=== PATIENT | male | born 1960 | race Caucasian/White ===

== ENCOUNTER 2018-04-01 12:42 | Outpatient (CLI) | payer OTHER | END 2018-04-01 12:43 | disposition home or self-care (01) | LOC: DTY/OP 12:42 | PROVIDERS: ATTEND Specialist | DX: Z01.818 Encounter for other preprocedural examination (principal); E66.01 Morbid (severe) obesity due to excess calories | CPT/HCPCS: 97802 ==

== ENCOUNTER 2018-04-24 12:22 | Outpatient (CLI) | payer BC ==
--- NOTE | 2018-04-24 22:18 | EKG ---
Test Reason : Blood Pressure : / mmHG Vent. Rate : 074 BPM Atrial Rate : 074 BPM P-R Int : 160 ms QRS Dur : 098 ms QT Int : 362 ms P-R-T Axes : -02 005 003 degrees QTc Int : 401 ms Normal sinus rhythm Minimal voltage criteria for LVH, may be normal variant Cannot rule out Inferior infarct , age undetermined Borderline ECG No previous ECGs available Confirmed by MICHELLE SEAMAN, DR. Jimenes ([id number]) on 04/24/2018 10:18:27 PM Referred By: MELISSA Confirmed By:DR. Yudy MARTINEZ MD
== END 2018-04-24 12:23 | disposition home or self-care (01) ==
LOC: LABBT 12:22
PROVIDERS: ATTEND Specialist
DX: Z01.818 Encounter for other preprocedural examination (principal); E66.01 Morbid (severe) obesity due to excess calories
CPT/HCPCS: 93005; 93010

== ENCOUNTER 2018-04-24 12:30 | Inpatient (IN) | payer BC ==
[2018-04-30] MEDS ORDERED: Bupivacaine/Epinephrine 0.25% 30 ML VIAL ONE (06:29)
[2018-04-30] MEDS ORDERED: Fentanyl 250 MCG/5 ML VIAL ONE (06:39)
[2018-04-30] MEDS ORDERED: Midazolam HCl 2 mg/2 ml Vial ONE (06:39)
[2018-04-30] MEDS ORDERED: Ketorolac Tromethamine 30 MG/ML VIAL ONE (06:42)
[2018-04-30] MEDS ORDERED: CEFAZOLIN/Water 2 GM/20 ML SYRINGE ONE (06:42)
[2018-04-30] MEDS ORDERED: Ondansetron HCl/PF 4 MG/2 ML Vial IVP PRN ×2 (07:16→10:49)
[2018-04-30] MEDS ORDERED: Promethazine HCl 25 MG/ML VIAL SLOW IVP PRN (07:16)
[2018-04-30] MEDS ORDERED: Promethazine HCl 25 MG/ML VIAL IM PRN ×2 (07:16→10:49)
[2018-04-30] MEDS ORDERED: Scopolamine 1.5 mg/72 hour Patch ONE (08:01)
[2018-04-30] MEDS ORDERED: Fentanyl 100 MCG/2 ML VIAL ONE (09:39)
[2018-04-30 10:18] VITALS: BMI 46.8
[2018-04-30] MEDS ORDERED: Dextrose 50% Abboject 50 ML SYRINGE SLOW IVP PRN (10:49)
[2018-04-30] MEDS ORDERED: Dextrose 5% in Water 1,000 ML IV PRN (10:49)
[2018-04-30] MEDS ORDERED: Hydrocodone-Acetamin 15 ML UDCUP PO PRN (10:49)
[2018-04-30] MEDS ORDERED: diphenhydrAMINE 50 MG/ML VIAL IVP PRN (10:49)
[2018-04-30] MEDS ORDERED: Morphine 4 MG/ML VIAL SLOW IVP PRN ×2 (11:30)
[2018-04-30] MEDS: Ketorolac Tromethamine 30 MG/ML VIAL IVP SCH ×3 (11:37→23:50)
[2018-04-30] MEDS: D5 1/2 NS w/20 mEq KCL 1,000 ML IV SCH ×2 (11:37→18:26)
[2018-04-30] MEDS: hydrALAZINE 20 MG/ML VIAL SLOW IVP PRN ×2 (11:38→15:16)
--- NOTE | 2018-04-30 12:02 | OP ---
DATE OF PROCEDURE: 04/30/2018 PREOPERATIVE DIAGNOSIS: Morbid obesity. POSTOPERATIVE DIAGNOSIS: Morbid obesity. OPERATION PERFORMED: Laparoscopic vertical sleeve gastrectomy using the ViSiGi device. SURGEON: Benjamin Cruz M.D. ANESTHESIA: General endotracheal per Dr. Victor M Huerta. INDICATIONS: The patient is a 57-year-old morbidly obese white male. He has undergone preoperative evaluation and education and presents at this time for laparoscopic sleeve gastrectomy. He has lost 25 pounds in preparation for surgery as per my request. DESCRIPTION OF OPERATIVE: Informed consent was obtained. The patient was taken to the operating ike m where general endotracheal anesthesia obtained with the patient in supine position. Abdomen was pr epped with ChloraPrep and draped in sterile fashion. Local anesthetic was infiltrated and 5 mm supra umbilical incision was created through which Veress needle was passed to the peritoneal cavity and pn eumoperitoneum established using carbon dioxide up to a pressure of 15 mmHg. A 5 mm trocar port was passed through this same incision. Laparoscopic camera was passed through this port. Under direct v ision, 4 additional ports were placed including bilateral 5 mm subcostal ports, a 12 mm right paramed belkis port and a 15 mm left paramedian port. A 5 mm epigastric incision was created through which Nathansen retractor was passed into the abdomina l cavity and used to retract the left lobe of the liver. The patient was placed into reverse [place] position. The ViSiGi device was advanced within the stomach and used to decompress this. The pylorus was ident ified and beginning 4 cm proximal to the pylorus, the omentum and vascular tissue along the greater c urvature was divided using the LigaSure in an ascending fashion up to the angle of His. All posterio r adhesions were mobilized. The short gastric vessels were carefully divided and then hemostasis was maintained using the LigaSure. Once this was completely mobilized, the ViSiGi was carefully positio sue at the level of the pylorus and placed to suction, which was clearly defining the lesser curvatur e of the stomach. The gastrectomy was then performed using a series of fires of the Bluewell stapler using a green load followed by a gold load and a series of blue loads until completion of the gastrectomy. The ViSiGi a long the lesser curvature was used as a size 36 bougie to guide in the gastric division. Care was ta marvin to avoid narrowing the incisura or the gastroesophageal junction. The integrity of the staple line was then assessed by insufflating gas through the ViSiGi while irrig ating along the staple line. There was no evidence of an air leak. There was no evidence of bleedin g along the staple line. The resected stomach was then removed through the 15 mm port and the fascia was closed with 0 Vicryl suture using a GraNee needle. I then closed the 12 mm port also using the GraNee needle and 0 Vicryl suture. The Nathansen retractor was removed. All ports and instruments were removed under direct v ision. All irrigant was aspirated. Pneumoperitoneum was carefully evacuated. Quarter percent Maria E ine with epinephrine was infiltrated into each port site. Skin edges approximated with 4-0 Monocryl subcuticular suture. Dermabond was placed externally. There were no complications. The patient faizan erated the procedure well and was taken to recovery room in stable condition.
[2018-04-30] MEDS ORDERED: Succinylcholine Chloride 20 MG/ML 10 ml SYRINGE FS ONE (15:03)
[2018-04-30] MEDS ORDERED: PROPOFOL 200 MG/20 ML VIAL ONE (15:03)
[2018-04-30] MEDS ORDERED: PHENYLEPHRINE-NS 100 MCG/ML 10 ML SYRINGE ONE (15:03)
[2018-04-30] MEDS ORDERED: Ondansetron HCl/PF 4 MG/2 ML Vial ONE (15:03)
[2018-04-30] MEDS ORDERED: Dexamethasone 20 MG/5 ML VIAL ONE (15:03)
[2018-04-30] MEDS ORDERED: Enoxaparin Sodium 40 MG/0.4 ML SYRINGE SC SCH (21:00)
[2018-04-30] MEDS ORDERED: Pantoprazole 40 MG VIAL IVP SCH (21:00)
[2018-05-01] MEDS: D5 1/2 NS w/20 mEq KCL 1,000 ML IV SCH ×2 (04:05→11:55)
[2018-05-01 05:06] LABS: %Basophils 0.2 % (0.0-1.0); %Eosinophils 0.1 % (0.0-10.0); %Lymphocytes 6.5 % (21.0-51.0); %Monocytes 6.8 % (0.0-10.0); %Neutrophils 86.5 % (42.0-75.0); Mean Corpuscular HGB CONC 32.9 g/dL (32.0-36.0); Mean Corpuscular Hemoglobin 28.3 pg (27.0-31.0); Mean Platelet Volume 6.8 fL (7.4-10.4); Platelet Count 228 thou/uL (130-400); RBC Distribution Width 14.1 % (11.5-14.5); Red Blood Cell (RBC) Count 4.95 mill/uL (4.70-6.10); White Blood Cell (WBC) Count 15.1 thou/uL (4.8-10.8)
[2018-05-01 05:21] LABS: Anion Gap 10 mmol/L (10-20); BUN (Urea Nitrogen) 21 mg/dL (8.4-25.7); Calc. Creatinine Clearance 178 mL/min (70-130); Calcium 8.7 mg/dL (7.8-10.44); Carbon Dioxide 27 mmol/L (22-29); Chloride 103 mmol/L (98-107); Estimated GFR-MDRD 70; Glucose 149 mg/dL (70-105); Potassium 4.1 mmol/L (3.5-5.1); Sodium 136 mmol/L (136-145)
[2018-05-01] MEDS: Ketorolac Tromethamine 30 MG/ML VIAL IVP SCH ×2 (06:08→11:54)
[2018-05-01 11:36] VITALS: BP 105/55; TEMP 97.7
--- NOTE | 2018-05-01 23:41 | DIS ---
DATE OF ADMISSION: 04/30/2018 DATE OF DISCHARGE: 05/01/2018 ADMISSION DIAGNOSIS: Morbid obesity. DISCHARGE DIAGNOSIS: Morbid obesity. OPERATION AND PROCEDURE PERFORMED: Laparoscopic vertical sleeve gastrectomy. ADMISSION HISTORY: The patient is a 57-year-old white male, who has a BMI of about 47. Following a course of outpatient education and evaluation, presents at this time for surgery. HOSPITAL COURSE: He underwent uneventful sleeve gastrectomy using the ViSiGi device. He has had an uncomplicated postoperative course. He has not vomited since surgery. He denies significant pain. He was started on his bariatric clear liquid diet today, which he has tolerated well. He has been am bulating. His vital signs reveal that he has been afebrile and he initially had a heart rate of 75, but he currently has a heart rate of about 110. His blood pressure is 105/55. PHYSICAL EXAMINATION: LUNGS: Clear to auscultation. CARDIAC: Regular rate and rhythm. ABDOMEN: Soft with normoactive bowel sounds. Incisions are healing nicely. LABORATORY STUDIES: Reveal white blood cell count is 15, hemoglobin is 14. Chemistry profile is unr emarkable. ASSESSMENT: He appears to be doing well following vertical sleeve gastrectomy. Since he did have an increase in his heart rate, I will check an EKG to make sure that there is no unexpected arrhythmia. Otherwise, he appears to be doing well and should be stable for discharge home. He will be dischar ge home with a prescription for hydrocodone, elixir and instructions to follow up with myself in 2 w eeks.
== END 2018-05-01 16:33 | disposition home or self-care (01) | DRG 621 ==
LOC: SURG A 04-30 06:02
PROVIDERS: ADMIT Specialist; ATTEND Specialist
PROC: 0DB64Z3 Excision of Stomach, Percutaneous Endoscopic Approach, Vertical (ICD-10-PCS; principal; 2018-04-30)
DX: E66.01 Morbid (severe) obesity due to excess calories (principal); Z68.42 Body mass index [BMI] 45.0-49.9, adult
CPT/HCPCS: 36415; 80048; 85025; 88307; 88312; 94760; C9113; J0131; J0360; J1100; J1650; J1885; J2250; J2270; J2405; J2704; J3010